=== PATIENT | female | born 2000 | race Asian ===

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

== ENCOUNTER → 2019-09-10 | Outpatient (CLI) | payer OTHER ==
[~2019-09-10] MED LIST: accutane PO
== END | disposition home or self-care (01) ==
LOC: LAB 14:06
PROVIDERS: ATTEND Internal Medicine
DX: R10.84 Generalized abdominal pain (principal)
CPT/HCPCS: 87338

== ENCOUNTER 2020-01-01 14:41 | Outpatient (CLI) | payer OTHER ==
[2020-01-03 10:30] LABS: QUANTIFERON TB Ag1-NIL 0.23 (0.000-0.000)
== END 2020-01-01 23:59 | disposition home or self-care (01) ==
LOC: CFH 14:41
PROVIDERS: ATTEND Nurse Practitioner Primary Care
DX: Z11.59 Encounter for screening for other viral diseases (principal)
CPT/HCPCS: 36415; 86480

== ENCOUNTER → 2020-01-06 | Outpatient (CLI) | payer OTHER | END | disposition home or self-care (01) | LOC: RAD 13:35 | PROVIDERS: ATTEND Nurse Practitioner Primary Care | DX: R76.12 Nonspecific reaction to cell mediated immunity measurement of gamma interferon antigen response without active tuberculosis (principal) | CPT/HCPCS: 71046 ==

== ENCOUNTER 2020-05-06 07:54 | Emergency (ER) | payer OTHER ==
[~2020-05-06] VITALS: Ht 167.6 cm; Wt 65.7 kg
--- NOTE | 2020-05-06 08:35 | NUR ---
assumed care of pt. pt here for COVID R/O. pt c/o sore throat, intermittent cough with body aches. pt denies fevers. pt has had exposure to COVID, but has tested negative previously. pt is sitting up on gurney in no apparent distress. CXR has been to bedside. lab has been to bedside to draw pt updated on POC
--- NOTE | 2020-05-06 08:50 | NUR ---
Dr. Guzmán at bedside for recheck
[2020-05-06 09:18] VITALS: BP 111/70
== END 2020-05-06 09:22 | disposition home or self-care (01) ==
LOC: ED 08:46
DX: U07.1 COVID-19 (principal); M79.10 Myalgia, unspecified site; J02.9 Acute pharyngitis, unspecified; J40 Bronchitis, not specified as acute or chronic
CPT/HCPCS: 71045; 86308; 87081; 87635; 87880; 99284